=== PATIENT | female | born 1975 | race Caucasian/White ===

== ENCOUNTER 2016-12-27 15:40 | Emergency (ER) | payer BC, OTHER ==
[2016-12-27 16:43] VITALS: BP 145/74
--- NOTE | 2016-12-27 17:28 | UC ---
Ear Complaint HPI - HPI Summary HPI Summary: 41 year old female with ear concerns. c/o L ear "fullness and muffled" for the past 2 weeks. she states she tried using debrox this am to get wax out and was unsuccessful, now the L ear is "more aggravated" Denies any recent URI, but does state having seasonal allergies [ End ] - History of Current Complaint Chief Complaint: UCEar Stated Complaint: LEFT EAR PAIN Time Seen by Provider: 12/27/16 17:13 Hx Obtained From: Patient Hx Last Menstrual Period: 12/23/16 Onset/Duration: Gradual Onset Severity Initially: Moderate - Allergies/Home Medications Allergies/Adverse Reactions: Allergies Allergy/AdvReac Type Severity Reaction Status Date / Time No Known Allergies Allergy Verified 12/27/16 16:43 Home Medications: Home Medications Ibuprofen [Ibuprofen 200 MG] 600 mg PO PRN 12/27/16 [History] PMH/Surg Hx/FS Hx/Imm Hx Previously Healthy: Yes - Surgical History Surgical History: Yes Surgery Procedure, Year, and Place: surgery following delivery of jamila. 2004 - Family History Known Family History: Negative: Cardiac Disease - Social History Occupation: Employed Full-time - [employer] Lives: With Family Alcohol Use: None Substance Use Type: None Smoking Status (MU): Never Smoked Tobacco Review of Systems ENT: Ear Ache All Other Systems Reviewed And Are Negative: Yes Physical Exam Triage Information Reviewed: Yes Appearance: Well-Appearing, Well-Nourished Vital Signs: Initial Vital Signs Temp 98.1 F 12/27/16 16:33 Pulse 69 12/27/16 16:33 Resp 16 12/27/16 16:33 BP 145/74 12/27/16 16:33 Pulse Ox 100 12/27/16 16:33 Vital Signs Reviewed: Yes Eye Exam: Normal ENT Exam: Normal ENT: Positive: Other: - impacted cerumen in the canal. Negative: Nasal congestion, Tonsillar swelling, Tonsillar exudate Respiratory Exam: Normal Cardiovascular Exam: Normal Musculoskeletal Exam: Normal Neurological Exam: Normal Psychological Exam: Normal Skin Exam: Normal Re-Evaluation - Re-Evaluation First Eval Change: Improved - used currette and removed all wax and ear canal clear no acute concerns no blood or discharge TM normal Ear Complaint Course/Dx - Differential Dx/Diagnosis Provider Diagnoses: Cerumen impaction Discharge - Discharge Plan Condition: Good Disposition: HOME Patient Education Materials: Cerumen Impaction (ED) Referrals: No Primary Care Phys,NOPCP [Primary Care Provider] - If Needed
== END 2016-12-27 18:05 | disposition home or self-care (01) ==
LOC: UCCORT 15:40
DX: H61.22 Impacted cerumen, left ear (principal)
CPT/HCPCS: 69210; 99202; G0463